=== PATIENT | male | born 1975 | race Caucasian/White ===

== ENCOUNTER 2018-01-29 04:27 | Emergency (ER) | payer OTHER | END 2018-01-29 06:38 | disposition home or self-care (01) | LOC: E/R 04:27 | DX: F11.10 Opioid abuse, uncomplicated (principal); N18.6 End stage renal disease; F17.210 Nicotine dependence, cigarettes, uncomplicated; Z99.2 Dependence on renal dialysis | CPT/HCPCS: 99282; Z7502 ==